=== PATIENT | female | born 1995 ===

== ENCOUNTER 2021-03-30 22:01 | Emergency (ER) | payer OTHER ==
[~2021-03-30] VITALS: Ht 157.5 cm; Wt 69.2 kg
[2021-03-30 23:18] VITALS: BP 115/76
== END 2021-03-31 00:11 | disposition home or self-care (01) ==
LOC: ER 22:01
DX: T19.2XXA Foreign body in vulva and vagina, initial encounter (principal); X58.XXXA Exposure to other specified factors, initial encounter; Y93.89 Activity, other specified; Y92.89 Other specified places as the place of occurrence of the external cause; Y99.8 Other external cause status
CPT/HCPCS: 20520; 81025; 99284